=== PATIENT | female | born 1965 | race Caucasian/White ===

== ENCOUNTER 2016-05-04 02:02 | Inpatient (IN) | payer OTHER ==
--- NOTE | 2016-05-02 16:04 | EKG Report ---
Test Performed on : 05/02/2016 3:57:39 PM Test Reason : PAT Blood Pressure : / mmHG Vent. Rate : 061 BPM Atrial Rate : 061 BPM P-R Int : 108 ms QRS Dur : 092 ms QT Int : 424 ms P-R-T Axes : 021 051 052 degrees QTc Int : 426 ms Sinus rhythm. with short [place] Otherwise normal ECG No previous ECGs available Confirmed by Ho Kendrick MD ([id number]) on 05/03/2016 9:44:05 PM
[2016-05-02 16:38] LABS: URINE MICRO REVIEW NEEDED? NO; URINE SOURCE CLEAN CATCH
[2016-05-02 16:43] LABS: BILIRUBIN URINE NEGATIVE (NEGATIVE); BLOOD URINE NEGATIVE (NEGATIVE); COLOR YELLOW; GLUCOSE URINE NEGATIVE (NEGATIVE); HEMATOCRIT 38.5 % (37.0-47.0); HEMOGLOBIN 12.5 g/dL (12.0-16.0); LEUKOCYTES URINE NEGATIVE (NEGATIVE); MCH 30.3 PG (27-31); MCHC 32.5 g/dL (33-37); MCV 93.2 FL (81-99); MPV 9.8 FL (7.4-10.4); NITRITE URINE NEGATIVE (NEGATIVE); PH URINE 7.5; PROTEIN URINE NEGATIVE (NEGATIVE); RBC 4.13 XMIL (4.2-5.4); SP GRAVITY URINE 1.013; TURBIDITY URINE CLEAR (CLEAR); UROBILINOGEN URINE NORMAL (NORMAL)
[2016-05-02 16:44] LABS: UR EPITHELIAL CELLS <10 /HPF (<10); URINE BACTERIA NEGATIVE /HPF; URINE RBC <10 /HPF (<10); URINE WBC <10 /HPF (<10)
[2016-05-02 16:56] LABS: AGAP 10; ALBUMIN 4.5 g/dL (3.5-5.0); ALKALINE PHOSPHATASE 64 U/L (32-104); BUN 19 mg/dL (8-22); CALCIUM 9.8 mg/dL (8.8-10.2); CHLORIDE 98 mmol/L (98-107); COSMO 276; GOT 12 U/L (10-30); GPT 10 U/L (10-36); POTASSIUM 4.6 mmol/L (3.5-5.1); SODIUM 137 mmol/L (136-145); TCO2 29 mmol/L (25-35); TOTAL BILIRUBIN 0.16 mg/dL (0.20-1.00); TOTAL PROTEIN 7.4 g/dL (6.3-8.3)
--- NOTE | 2016-05-02 17:04 | Diag Imaging Result Document ---
PROCEDURE NAME: CHEST-2 VIEWS - 05/02/2016 TWO-VIEWS OF THE CHEST: FINDINGS: There is a bone plate in the right scapula and there has been anterior fusion at the C6- 7 level. There is no evidence of acute cardiac or pulmonary disease and no previous studies are available for comparison. IMPRESSION: No acute disease.
[2016-05-04] MEDS ORDERED: LR 1,000 ML ONE ×2 (06:25→12:15)
[2016-05-04] MEDS ORDERED: LOVENOX ONE (06:25)
[2016-05-04] MEDS ORDERED: KEFZOL 2 GM/D5W 50 ML ONE (06:25)
[2016-05-04] MEDS ORDERED: REGLAN ONE (06:26)
[2016-05-04] MEDS ORDERED: PEPCID ONE (06:26)
[2016-05-04] MEDS ORDERED: TRANSDERM-SCOP ONE (06:26)
[2016-05-04] MEDS ORDERED: NS 250 ML ONE (06:40)
[2016-05-04] MEDS ORDERED: BACITRACIN ONE (06:41)
[2016-05-04] MEDS ORDERED: EXPAREL 1.3% ONE (06:41)
[2016-05-04 06:47] LABS: URINE SOURCE VOIDED
[2016-05-04] MEDS ORDERED: METHYLENE BLUE 1% ONE (06:47)
[2016-05-04 06:51] LABS: BILIRUBIN URINE NEGATIVE (NEGATIVE); BLOOD URINE NEGATIVE (NEGATIVE); CLARITY CLEAR (CLEAR); COLOR YELLOW; GLUCOSE URINE NEGATIVE (NEGATIVE); LEUKOCYTES URINE NEGATIVE (NEGATIVE); NITRITE URINE NEGATIVE (NEGATIVE); PROTEIN URINE NEGATIVE (NEGATIVE); SP GRAVITY URINE 1.025; UROBILINOGEN URINE 0.2 EU/dL (0.2-1.0)
[2016-05-04 06:55] LABS: URINE EPITHELIAL CELLS >10 /HPF (<10); URINE RBC TNTC /HPF (<10); URINE WBC TNTC /HPF (<10)
--- NOTE | 2016-05-04 07:40 | Diag Imaging Result Document ---
PROCEDURE NAME: LYMPHOSCINTIGRAPHY W/IMG - 05/04/2016 LYMPHOSCINTIGRAM: FINDINGS: The patient was injected with 507 mCi of tilmanocept intradermally, and there is uptake in a node in the axillary region. There are several fainter nodes seen more superiorly and medially. IMPRESSION: Axillary sentinel node as described.
[2016-05-04 08:07] LABS: URINE MICRO REVIEW NEEDED? NO; URINE SOURCE CATH
[2016-05-04] MEDS ORDERED: NS 2,000 ML ONE (08:14)
[2016-05-04 09:14] LABS: BILIRUBIN URINE NEGATIVE (NEGATIVE); BLOOD URINE NEGATIVE (NEGATIVE); COLOR YELLOW; GLUCOSE URINE NEGATIVE (NEGATIVE); LEUKOCYTES URINE NEGATIVE (NEGATIVE); NITRITE URINE NEGATIVE (NEGATIVE); TURBIDITY URINE CLEAR (CLEAR)
[2016-05-04 09:53] LABS: PROTEIN URINE TRACE mg/dL (NEGATIVE); SP GRAVITY URINE 1.024; UROBILINOGEN URINE NORMAL (NORMAL)
[2016-05-04 10:15] LABS: UR EPITHELIAL CELLS >10 /HPF (<10); URINE BACTERIA NEGATIVE /HPF; URINE RBC <10 /HPF (<10); URINE WBC <10 /HPF (<10)
[2016-05-04] MEDS: KEFZOL 1 GM/D5W 50 ML ONE ×2 (10:50→11:00)
[2016-05-04] MEDS: DILAUDID ONE ×5 (11:27→11:55)
[2016-05-04] MEDS ORDERED: FENTANYL ONE (11:28)
[2016-05-04] MEDS ORDERED: DIPRIVAN 1% ONE (11:28)
[2016-05-04] MEDS ORDERED: NORCURON ONE (11:50)
[2016-05-04] MEDS ORDERED: ROBINUL ONE (11:50)
[2016-05-04] MEDS ORDERED: NEOSTIGMINE ONE (11:50)
[2016-05-04] MEDS ORDERED: ZOFRAN ONE (11:50)
[2016-05-04] MEDS ORDERED: QUELICIN (DOSE) ONE (11:51)
[2016-05-04] MEDS ORDERED: DECADRON ONE (11:51)
[2016-05-04] MEDS ORDERED: LR 2,000 ML ONE (11:51)
[2016-05-04] MEDS ORDERED: XYLOCAINE-MPF 2% ONE (11:51)
[2016-05-04] MEDS: PHENERGAN ONE ×2 (12:13→12:40)
--- NOTE | 2016-05-04 12:28 | OPERATIVE NOTE ---
PROCEDURE DATE: 05/04/2016 PREOPERATIVE DIAGNOSIS: Carcinoma left breast. POSTOPERATIVE DIAGNOSIS: Carcinoma left breast PROCEDURE: 1. Total mastectomy, sentinel nodes left side. 2. Simple mastectomy right side. 3. Planned reconstruction by Dr. Rojas. SURGEON: Ryland Mcguire MD DESCRIPTION OF PROCEDURE: The patient was brought to the operating room. After satisfactory induction of IV and endotracheal anesthesia, Tariq catheter were placed. She was prepped and draped in the appropriate manner for bilateral mastectomies. Areas had been previously marked out with teardrop type incisions by Dr. Rojas. Simple mastectomy was initially performed on the right side with superior and inferior ellipses being developed with dissection taken down to the fascia of the pectoralis muscle. The breast was swept laterally with preservation of the pectoralis fascia. On reaching the lateral border, the breast was amputated, and the specimen was removed. The lateral border was marked. Attention was then taken to the left side. A symmetric mirror type incision was made on the left side with superior and inferior flaps being developed. The breast being swept laterally again with preservation of the pectoralis fascia. On reaching the axilla, two sentinel nodes were removed through the same incision with no counter incision being made. Dissection was largely performed with monopolar cautery. The breast was amputated. There appeared to be no further bleeding. Dr. Rojas will subsequently enter the suite and initiate the placement of the tissue expanders. Total blood loss for the 2 procedures about 50 mL to the side and she had no complications.
[2016-05-04] MEDS ORDERED: PHENERGAN IV PRN (12:38)
[2016-05-04] MEDS ORDERED: SODIUM CHLORIDE 0.9% INJ PRN (12:38)
[2016-05-04] MEDS ORDERED: BENADRYL IV PRN (12:38)
[2016-05-04] MEDS ORDERED: NARCAN IV PRN (12:38)
[2016-05-04] MEDS ORDERED: ZOFRAN IV PRN (12:38)
[2016-05-04] MEDS ORDERED: MORPHINE PCA ONE (12:45)
[2016-05-04] MEDS: LR 1,000 ML IV SCH ×4 (13:00→23:36)
[2016-05-04] MEDS ORDERED: XANAX PO PRN (13:34)
--- NOTE | 2016-05-04 18:10 | OPERATIVE NOTE ---
PROCEDURE DATE: 05/04/2016 PROCEDURE: Bilateral placement of submuscular breast reconstruction tissue technical advisor. SURGEON: Dr. Rojas. The ICD-10 diagnosis code for this case is Z85.3, personal history [place]. [place] [address], tissue technical advisor [id number], tissue technical advisor on the other side. INDICATION FOR PROCEDURE: This patient is a 51-year-old white female who has a breast cancer diagnosed by Dr. Mcguire on the left side. She has a history of severe fibrocystic disease. She needs a mastectomy with sentinel lymph node biopsy on the left side and then a total mastectomy for prophylaxis on the right. Dr. Mcguire will perform the mastectomy. She was seen in the office for informed consent for this procedure on 05/02/2016. At that point, she understood that she would have bilateral mastectomies and we would be doing her reconstruction with bilateral tissue expanders. She understood that this is the first stage of a planned 2 stage procedure and that these tissue expanders are not permanent. They will be used to expand her skin and then when she is done with any therapy they have to be removed and permanent implants put in. She understands this will be approximately 4-6 months after her surgery. She knows the risks include infection, blood loss, blood clots in legs, heart problems, lung problems, allergic reactions, or blood and serum collections in the operative sites which might require drainage. She understands that these tissue expanders have a magnet in them so she cannot have an MRI scan while she has the magnet in place. She knows the exact size and shape cannot be guaranteed. She knows where skin incisions will be for the mastectomy. She understands where the scars will be. DESCRIPTION OF PROCEDURE: The patient was brought to the operating after she was marked in outpatient surgery in the sitting position. She went to the operating room and had general anesthesia and was prepped and draped. The chen were reviewed with Dr. Mcguire and then he proceeded to do the mastectomies. When he was completed, a submuscular pocket was dissected under the pectoralis major muscle and then splitting the pectoralis minor muscle and then dissecting under the origin of the minor muscle and the origin of the serratus anterior muscle to create a complete submuscular pocket for the expanders. She was irrigated with bacitracin solution and then Exparel was injected into the muscles all around the technical advisor pocket and into the skin all around the pocket. She measured well for 400 mL expanders. These were filled to 100 mL and placed in each pocket. They were placed over drain beneath it. One stay stitch was placed in the outer lateral lower tab to orient the technical advisor and keep it stable. The muscle was closed with 3-0 Polysorb interrupted sutures. She was tacked closed with silk sutures over a drain on both sides. A 10-[place] stopcock drain was used in the left axillary node work area. She was then closed with 3-0 Polysorb interrupted sutures in the fat, running 3-0 Polysorb deep dermal suture, followed by running 4-0 Biosyn subcuticular stitch. The drains were secured with 6 drain stitches. She tolerated the procedure well. The type of expanders that were used in this patient were [employer] style 133 MV 13-T expanders. The serial number for the right one was [id number]. The serial number for the left one was [id number]. She tolerated procedure well and was transported to the recovery room in good condition.
[2016-05-04] MEDS: KEFZOL 1 GM/D5W 50 ML IV SCH (18:27)
[2016-05-04] MEDS: MORPHINE PCA IV PRN (18:43)
[2016-05-04] MEDS: PERIDEX MT SCH (21:51)
[2016-05-05] MEDS: KEFZOL 1 GM/D5W 50 ML IV SCH ×2 (05:14→12:52)
[2016-05-05] MEDS: MORPHINE PCA IV PRN (05:18)
[2016-05-05] MEDS: LR 1,000 ML IV SCH ×2 (05:20→12:53)
[2016-05-05] MEDS ORDERED: TYLENOL PO PRN (05:59)
[2016-05-05] MEDS ORDERED: PRILOSEC PO SCH (07:00)
[2016-05-05] MEDS ORDERED: NORCO-10 PO PRN (08:06)
[2016-05-05] MEDS ORDERED: TORADOL IV ONE (08:11)
[2016-05-05] MEDS: PERIDEX MT SCH (08:49)
[2016-05-05] MEDS ORDERED: ESTRACE PO SCH (09:00)
[2016-05-05] MEDS ORDERED: LEXAPRO PO SCH (09:00)
[2016-05-05] MEDS ORDERED: HEMOCYTE PLUS CAPSULE PO SCH (09:00)
[2016-05-05 16:20] VITALS: BP 128/68
[2016-05-05] MEDS ORDERED: LOVENOX SUBQ ONE (17:21)
--- NOTE | 2016-05-05 19:18 | DISCHARGE SUMMARY ---
ADMISSION DATE: 05/04/2016 DISCHARGE DATE: 05/05/2016 HOSPITAL COURSE/INDICATIONS FOR ADMISSION: The patient has newly diagnosed left breast cancer that is being taken care by Dr. Mcguire. She has severe bilateral fibrocystic disease and is going to have bilateral total mastectomies, the left for cancer treatment and the right for prophylaxis. She also had sentinel lymph node biopsy on the left. Then she was reconstructed after that operation with bilateral submuscular tissue expanders. She has done well on the floor. Her pain control is adequate with p.o. pain medicines and the fact that we used in her surgical sites in the operating room. She is eating. She is not nauseated. She is voiding. She understands how to take care of her drains and the surgical sites are flat. All of her prescriptions were written for her as an outpatient during her preop visit. She has [place], Keflex and Phenergan at home. I will see her in the office on Sunday for drain monitoring and dressing change.
== END 2016-05-05 18:56 | disposition home or self-care (01) | DRG 580 ==
LOC: SURHOLD 02:02 → 4N 11:39
PROVIDERS: ADMIT Surgery Plastic and Reconstructive Surgery; ATTEND Surgery Plastic and Reconstructive Surgery
PROC: 0HTV0ZZ Resection of Bilateral Breast, Open Approach (ICD-10-PCS; principal; 2016-05-04 07:05)
PROC: 0HHV0NZ Insertion of Tissue Expander into Bilateral Breast, Open Approach (ICD-10-PCS; 2016-05-04 07:05)
PROC: 07B60ZX Excision of Left Axillary Lymphatic, Open Approach, Diagnostic (ICD-10-PCS; 2016-05-04 07:05)
DX: C50.912 Malignant neoplasm of unspecified site of left female breast (principal); C77.3 Secondary and unspecified malignant neoplasm of axilla and upper limb lymph nodes; F41.9 Anxiety disorder, unspecified; K21.9 Gastro-esophageal reflux disease without esophagitis; F17.210 Nicotine dependence, cigarettes, uncomplicated; Z82.49 Family history of ischemic heart disease and other diseases of the circulatory system; Z80.3 Family history of malignant neoplasm of breast; Z87.11 Personal history of peptic ulcer disease; Z98.1 Arthrodesis status; Z79.899 Other long term (current) drug therapy; Z79.890 Hormone replacement therapy; Z40.01 Encounter for prophylactic removal of breast; M47.812 Spondylosis without myelopathy or radiculopathy, cervical region; N60.12 Diffuse cystic mastopathy of left breast; N60.11 Diffuse cystic mastopathy of right breast
CPT/HCPCS: 71020; 78195; 80053; 81001; 85027; 88307; 88313; 93005; 93010; 94761; 94799; A9520; C1789; C9290; J0330; J0690; J1100; J1170; J1650; J1885; J2270; J2405; J2550; J3010; J7030; J7050; J7120; Q9968; J2710